=== PATIENT | male | born 1990 | race Caucasian/White ===

== ENCOUNTER 2020-08-15 13:31 | Emergency (ER) | payer SELFPAY ==
[~2020-08-15] VITALS: Ht 190.5 cm; Wt 120.5 kg
--- NOTE | 2020-08-15 13:33 | NUR ---
PT BIB EMS AND WAS AT WORK MAKING [employer]IVERE[employer] WHEN HE SUDDENLY FELT HOT, NAUSEA, DISSINESS, AND VOMITTING. Pt connected to continious BP, O2, and Cardiac monitors. Ambulatory with steady gait, speaking in full sentences. VSS. GAMING.
--- NOTE | 2020-08-15 14:32 | NUR ---
Dr Grigsby at bedside to discuss POC
--- NOTE | 2020-08-15 14:46 | NUR ---
LAB IN ROOM, BS 80, MD NOTIFIED
[2020-08-15 14:54] LABS: BASOPHILS % (AUTO) 1 % (0-1); EOSINOPHILS % (AUTO) 2 % (1-7); LYMPHOCYTES % (AUTO) 12 % (22-44); MEAN CORPUSCULAR HEMOGLOBIN 30.9 pg (27.5-34.5); MEAN CORPUSCULAR HGB CONC 34.3 g/dL (33.2-36.2); MEAN PLATELET VOLUME 8.4 fL (7.4-10.4); MONOCYTES % (AUTO) 8 % (2-9); NEUTROPHILS % (AUTO) 77 % (42-75); PLATELET COUNT 218 x10^3/uL (130-400); RED BLOOD COUNT 4.77 x10^6/uL (4.38-5.82); RED CELL DISTRIBUTION WIDTH 13.2 % (9.4-14.8)
[2020-08-15] MEDS ORDERED: SODIUM CHLORIDE FLUSH 10ML SYR IVF ONE (15:00)
[2020-08-15] MEDS ORDERED: SODIUM CHLORIDE 0.9% 1,000ML IVBOLUS ONE (15:00)
[2020-08-15 15:03] LABS: ALANINE AMINOTRANSFERASE 49 U/L (12-78); ALBUMIN 3.8 g/dL (3.4-5.0); ANION GAP 4 mmol/L (5-15); CALCIUM 8.3 mg/dL (8.5-10.1); CHLORIDE 110 mmol/L (98-107); CREATININE 0.97 mg/dL (0.7-1.3)
[2020-08-15 15:07] LABS: ALKALINE PHOSPHATASE 58 U/L (45-117); BILIRUBIN,TOTAL 0.3 mg/dL (0.2-1.0); MD NO; TOTAL PROTEIN 6.5 g/dL (6.4-8.2); TROPONIN I < 0.015 ng/mL (0.000-0.045)
[2020-08-15 15:53] VITALS: BP 124/74
== END 2020-08-15 15:55 | disposition home or self-care (01) ==
LOC: ED 15:49
DX: R42 Dizziness and giddiness (principal); R11.0 Nausea; R94.31 Abnormal electrocardiogram [ECG] [EKG]; F17.200 Nicotine dependence, unspecified, uncomplicated
CPT/HCPCS: 80053; 80320; 82962; 82977; 83605; 84484; 85025; 93005; 96360; 96361; 99284; J7030; G0480